=== PATIENT | female | born 1980 | race Caucasian/White ===

== ENCOUNTER 2018-09-27 11:39 | Emergency (ER) | payer MEDICAID ==
[2018-09-27 13:11] LABS: ADD MAN DIFF? NO
[2018-09-27 13:26] LABS: WHITE BLOOD COUNT 9.5 10^3/ul (4.8-10.8)
[2018-09-27 13:26] LABS: BASOPHILS % 0.3 % (0.0-2.0); EOSINOPHILS # 0.1 10^3/ul (0.0-0.5); EOSINOPHILS % 0.8 % (0.0-7.0); HEMATOCRIT 42.5 % (37.0-47.0); LYMPHOCYTES # 1.6 10^3/ul (0.8-2.9); LYMPHOCYTES % 16.9 % (15.0-51.0); MEAN CORPUSCULAR HEMOGLOBIN 26.9 pg (29.0-33.0); MEAN CORPUSCULAR HGB CONC 32.9 g/dl (32.0-37.0); MEAN CORPUSCULAR VOLUME 81.7 fl (82.0-101.0); MEAN PLATELET VOLUME 9.6 fl (7.4-10.4); MONOCYTE # 0.6 10^3/ul (0.3-0.9); MONOCYTES % 6.7 % (0.0-11.0); NEUTROPHIL # 7.1 10^3/ul (1.6-7.5); NEUTROPHILS % 75.1 % (39.0-77.0); PLATELET COUNT 349 10^3/UL (140-415); RED CELL DISTRIBUTION WIDTH 12.5 % (11.5-14.5)
[2018-09-27 13:35] LABS: ADD UMIC YES; UR ASCORBIC ACID 40 mg/dL (NEGATIVE); UR BILIRUBIN (Dip) NEGATIVE (NEGATIVE); UR BLOOD (Dip) 1+ mg/dL (NEGATIVE); UR CLARITY SLIGHTLY CLOUDY (CLEAR); UR COLOR YELLOW (YELLOW); UR GLUCOSE (Dip) NEGATIVE (NEGATIVE); UR KETONES (Dip) NEGATIVE (NEGATIVE); UR LEUKOCYTE ESTERASE (Dip) NEGATIVE Leu/ul (NEGATIVE); UR MUCUS FEW /HPF (NONE SEEN); UR NITRITE (Dip) NEGATIVE (NEGATIVE); UR RBC 10 /HPF (0-5); UR SPECIFIC GRAVITY (Dip) 1.023 (1.003-1.030); UR SQUAMOUS EPITHELIAL CELL FEW /HPF (FEW); UR TOTAL PROTEIN (Dip) NEGATIVE (NEGATIVE); UR UROBILINOGEN (Dip) NEGATIVE (NEGATIVE); UR WBC 2 /HPF (0-5)
[2018-09-27 13:38] LABS: ALANINE AMINOTRANSFERASE 16 IU/L (13-69); ALBUMIN 4.4 g/dl (3.3-4.9); ALBUMIN/GLOBULIN RATIO 1.15; ALKALINE PHOSPHATASE 77 IU/L (42-121); ANION GAP 11 (5-13); ASPARTATE AMINO TRANSFERASE 27 IU/L (15-46); BLOOD UREA NITROGEN 7 mg/dl (7-20); CALCIUM 9.7 mg/dl (8.4-10.2); CARBON DIOXIDE 25 mmol/L (21-31); CHLORIDE 103 mmol/L (97-110); CREATININE 0.51 mg/dl (0.44-1.00); Estimated GFR > 60 mL/min (>60); GLUCOSE 90 mg/dl (70-220); POTASSIUM 3.5 mmol/L (3.5-5.1); SODIUM 139 mmol/L (135-144); TOTAL PROTEIN 8.2 g/dl (6.1-8.1)
[2018-09-27 14:21] LABS: LIPASE 75 U/L (23-300)
== END 2018-09-27 15:02 | disposition home or self-care (01) ==
LOC: FTE 11:39
DX: O26.891 Other specified pregnancy related conditions, first trimester (principal); R10.2 Pelvic and perineal pain; Z3A.09 9 weeks gestation of pregnancy
CPT/HCPCS: 36415; 76801; 80053; 81001; 83690; 84702; 85025; 87086; 99284-25